=== PATIENT | male | born 1935 ===

== ENCOUNTER 2019-01-01 09:54 | Outpatient (CLI) | payer MEDICARE | END 2019-01-01 09:55 | disposition home or self-care (01) | LOC: C.RADH 09:54 | DX: M19.071 Primary osteoarthritis, right ankle and foot (principal) ==

== ENCOUNTER 2019-03-16 10:22 | Outpatient (CLI) | payer MEDICARE | END 2019-03-16 10:23 | disposition home or self-care (01) | LOC: C.USH 10:23 | DX: N40.1 Benign prostatic hyperplasia with lower urinary tract symptoms (principal) ==